=== PATIENT | male | born 1940 | race African-American/Black ===

== ENCOUNTER 2016-12-30 12:34 | Inpatient (IN) | payer OTHER, MEDICAID ==
[~2016-12-30] VITALS: Ht 160 cm; Wt 88.5 kg
[2016-12-30] MEDS ORDERED: SODIUM CHLORIDE 0.9% 1,000 ML IV ONE (14:02)
[2016-12-30] MEDS ORDERED: ONDANSETRON HCL 4MG/2ML VIAL IV STA (14:02)
[2016-12-30] MEDS ORDERED: FAMOTIDINE 20MG/2ML VIAL IV STA (14:02)
[2016-12-30 14:22] LABS: BASOPHILS % 0.4 % (0.0-2.0); EOSINOPHILS % 0.2 % (0.0-5.0); HEMATOCRIT. 34.2 % (42.0-52.0); HEMOGLOBIN. 11.3 g/dL (14.0-18.0); MEAN CORPUSCULAR HEMOGLOBIN 25.5 pg (28.0-32.0); MEAN CORPUSCULAR VOLUME 77.2 fL (80.0-94.0); MEAN PLATELET VOLUME 8.5 fl (7.4-10.4); MONOCYTES % 8.8 % (2.0-8.0); NEUTROPHILS % 78.6 % (40.0-76.0); PLATELET 149 x1000/uL (130-400); RED BLOOD CELL COUNT 4.43 mill/uL (4.7-6.1)
[2016-12-30 14:29] LABS: INR 1.1; PROTHROMBIN TIME 11.6 sec (9.4-11.6)
[2016-12-30 14:37] LABS: CLARITY URINE CLEAR (CLEAR); COLOR URINE DARK YELLOW (YELLOW); GLUCOSE URINE NEGATIVE (NEGATIVE); KETONES URINE TRACE (NEGATIVE); LEUKOCYTE ESTERASE URINE NEGATIVE (NEGATIVE); NITRITE URINE NEGATIVE (NEGATIVE); OCCULT BLOOD URINE NEGATIVE (NEGATIVE); PROTEIN URINE TRACE (NEGATIVE); SPECIFIC GRAVITY URINE 1.023 (1.005-1.030)
[2016-12-30 14:39] LABS: CARBON DIOXIDE 31 mEq/L (21-32); CHLORIDE 105 mEq/L (98-107); TROPONIN I 0.15 ng/mL (0.00-0.04)
[2016-12-30] MEDS ORDERED: ONDANSETRON HCL 4MG/2ML VIAL IV PRN (20:45)
[2016-12-30] MEDS ORDERED: MORPHINE SULFATE 4 MG/ML CPJ (NOT FOR IM USE) IV PRN (20:45)
[2016-12-30] MEDS ORDERED: DEXTROSE 50% WATER 50ML SYRINGE IV PRN (20:45)
[2016-12-30] MEDS ORDERED: DEXT 5%/0.45% NACL 1000ML 1,000 ML IV SCH (21:00)
[2016-12-30 22:14] VITALS: BP 139/59
[2016-12-30 22:16] VITALS: BP 139/59
[2016-12-30 23:51] VITALS: BP 130/59
[2016-12-31] MEDS ORDERED: BLOOD SUGAR DIAGNOSTIC STRIP TEST SCH
[2016-12-31] MEDS ORDERED: ONDANSETRON HCL 4MG/2ML VIAL IV PRN
[2016-12-31] MEDS ORDERED: DIPHENHYDRAMINE 50MG/ML VIAL IV PRN
[2016-12-31] MEDS ORDERED: IPRATROPIUM/ALBUTEROL 0.5-3(2.5)MG/3ML NEB INH PRN
[2016-12-31] MEDS ORDERED: DEXTROSE 50% WATER 50ML SYRINGE IV PRN
[2016-12-31] MEDS ORDERED: INSULIN LISPRO (MEDIUM DOSE) 100 UNITS/ML SUBCUT SCH
[2016-12-31] MEDS ORDERED: ACETAMINOPHEN 325MG TABLET PO PRN
[2016-12-31] MEDS ORDERED: CLONIDINE 0.1MG TABLET PO PRN
[2016-12-31] MEDS: DEXT 5%/0.45% NACL 1000ML 1,000 ML IV SCH ×3 (00:58→14:47)
[2016-12-31] MEDS: FAMOTIDINE 20MG/2ML VIAL IV SCH ×2 (06:44→18:00)
[2016-12-31] MEDS: BLOOD SUGAR DIAGNOSTIC STRIP TEST SCH ×4 (07:20→21:00)
[2016-12-31] MEDS: INSULIN LISPRO 100 UNITS/ML SUBCUT SCH ×4 (07:50→21:00)
[2016-12-31 08:22] VITALS: BP 126/54
[2016-12-31 12:51] VITALS: BP 148/72
[2016-12-31 16:49] VITALS: BP 141/58
[2016-12-31] MEDS ORDERED: TIMO15DR12 LEFTEYE (19:48)
[2016-12-31] MEDS ORDERED: ATOR10TA69 PO (19:48)
[2016-12-31] MEDS ORDERED: BRIM15DR2 EACHEYE (19:48)
[2016-12-31] MEDS ORDERED: LATA2.5D2 EACHEYE (19:48)
[2016-12-31] MEDS ORDERED: MELO-106 PO (19:48)
[2016-12-31 20:00] VITALS: BP 133/60
[2016-12-31 22:39] VITALS: BP 133/60
== END 2016-12-31 22:45 | disposition short-term general hospital (02) | DRG 440 ==
LOC: ER 12:48 → 6WST 16:26 → EDBEDREQ 16:28 → ENRESERV 20:32
PROVIDERS: ADMIT Internal Medicine; ATTEND Internal Medicine
DX: K85.90 Acute pancreatitis without necrosis or infection, unspecified (principal); E11.9 Type 2 diabetes mellitus without complications; I10 Essential (primary) hypertension; Z82.49 Family history of ischemic heart disease and other diseases of the circulatory system; Z79.899 Other long term (current) drug therapy
CPT/HCPCS: 36415; 71010; 74176; 80053; 80061; 81001; 82962; 83036; 83690; 83880; 84484; 85025; 85610; 93005; 93970; 96361; 96374; 96375; 99285; J2270; J2405; J3490; J7030